=== PATIENT | female | born 1940 | race Caucasian/White ===

== ENCOUNTER 2019-03-17 20:10 | Emergency (ER) | payer OTHER ==
[~2019-03-17] VITALS: Ht 147.3 cm; Wt 78.5 kg
[~2019-03-17 20:10] MED LIST: ALBUTEROL SULFAT4 MG PO; AMLODIPINE BESY10 MG PO; ASPIRIN CHEW81 MG PO; CINNAMON500 MG PO; FIBER PO; FISH OIL 1,2001 EAC1 PO; FUROSEMIDE20 MG PO; LOSARTAN POTAS100 MG PO; MELOXICAM7.5 MG PO; OMEPRAZOLE40 MG PO; POTASSIUM GLUCO PO; SIMVASTATIN20 MG PO; SYMBICORT 16010.2 GM PO; Z.0.ATENOLOL25 MG PO; Z.0.BENZONATATE200 M PO; Z.0.CRESTOR5 MG PO; Z.0.LISINOPRIL20 MG PO; Z.0.MELOXICAM7.5 MG PO; Z.0.OMEPRAZOLE20 MG PO; Z.0.WARFARIN SODIUM2 PO; Z.0.WARFARIN SODIUM4 PO; [UNRECOGNIZED DRUG - MIXTURE] PO
--- OUTSIDE RECORDS SUMMARY | 2019-03-17 20:14 | XMS REPORT ---
Author Author [facility] Address Unknown Phone Unavailable Care Team Providers Care Pot Liner Name Role Phone Unavailable Unavailable Payers Payer Name Policy Type Policy Number Effective Date Expiration Date Problems This patient has no known problems. Allergies, Adverse Reactions, Alerts Allergy Name Allergy Type Status Severity Reaction(s) Onset Date Inactive Date Treating Clinician Comments albuterol DA Active SV 2018-11-21 00:00:00 levalbuterol DA Active SV 2018-11-21 00:00:00 codeine DA Active U 2018-09-20 00:00:00 codeine DA Active U 2018-06-14 00:00:00 codeine DA Active U 2012-09-21 00:00:00 Medications This patient has no known medications. Results Test Description Test Time Test Comments Text Results Atomic Results Result Comments - US ABDOMEN LTD 2019-01-16 08:11:00 Name: BRANDT GRIER [facility] : 1940 Age/S: 78 / F [address] Unit #: [id number] Loc: [place] [address] Phys: Pasquale Molina MD Acct: [id number] Dis Date: Status: REG REF PHONE #: [phone] Exam Date: 01/16/2019 0755 FAX #: Reason: FATTY LIVER EXAMS: CPT: [id number] US ABDOMEN LTD 72910 EXAMINATION: - US ABDOMEN LTD. LOCATION: S17. HISTORY: Fatty liver. COMPARISON: CT abdomen/pelvis 03/14/2014. US abdomen Limited 06/14/2018. TECHNIQUE: Multiple grayscale, pulse Doppler and color Doppler images of the right upper quadrant of the abdomen were obtained. FINDINGS: The visualized liver parenchyma demonstrates diffusely increased echogenicity, similar to prior. The main, right and left portal veins are patent. Hepatic veins, splenic vein and hepatic artery are patent. There is no intra or extrahepatic biliary ductal dilatation. The common duct measures 5 mm. The gallbladder is without calculi or wall thickening. The partially visualized pancreatic head and body appears unremarkable, evaluation of the tail is limited by overlying bowel gas. The right kidney measures 9.5 cm. There is no hydronephrosis. Large cyst arising from lower pole right kidney measuring 5.2 x 5.2 x 5.9 cm. Previously noted right upper pole cyst on CT is not appreciated sonographically. The visualized portions of abdominal aorta and IVC appear unremarkable. IMPRESSION: Unchanged diffusely increased echogenicity of liver parenchyma, nonspecific, most commonly described in the setting of hepatic steatosis versus underlying parenchymal process. PAGE 1 Signed Report (CONTINUED) [facility] 1940 Age/S: 78 / F [address] [address] Unit #: [id number] Loc: [place] [address] Phys: Pasquale Molina MD Acct: [id number] Dis Date: Status: REG REF PHONE #: [phone] Exam Date: 01/16/2019 0755 FAX #: Reason: FATTY LIVER EXAMS: CPT: [id number] US ABDOMEN LTD 55925 <Continued> at 0811 Reported and signed by: Ramy Multani M.D. CC: Wili Og MD; Pasquale Molina MD Technologist: Lenora Harvey, RT(R),RD(AB) Trnscb Date/Time: 01/16/2019 (08) [email or web address] PAGE 2 Signed Report [facility] 1940 Age/S: 78 / F [address] [address] Unit #: [id number] Loc: [place] [address] Phys: Pasquale Molina MD Acct: [id number] Dis Date: Status: REG REF PHONE #: [phone] Exam Date: 01/16/2019 0755 FAX #: Reason: FATTY LIVER EXAMS: CPT: [id number] ABDOMEN LTD 79557 <Continued> Orig Print D/T: S: 01/16/2019 (0815) Probe: PAGE 3 Signed Report BREAST,BIOPSY 2018-12-06 15:35:00 RUN DATE: 12/06/18 [place] - Lab PAGE 1 RUN TIME: 1535 Specimen Inquiry RUN USER: INTERFACE PATIENT: BRANDT GRIER LOC: V.SRG U #: [id number] AGE/SX: 78/F ROOM: RE11/28/18[facility] DR: Roland Webster MD : 44 BED: DIS: STATUS: [facility] TLOC: SPEC #: [id number] RECD: 11/28/18 STATUS: YAYA CORONADO #: [id number] OSIRIS: 11/28/18- SUBM DR: Roland Webster MD ENTERED: 11/28/18 SP TYPE: BX BREAST OTHR DR: Wili Og MD ORDERED: GROSS COPIES TO: Roland Webster MD [address] [place] [address] Wili Og MD [address] [place] [address] MARKERS: INTRADEPARTMENTAL CONSULT PROCEDURES: GROSS (12/06/18) TISSUES: BREAST CORE BIOPSY - LEFT MASS CLINICAL HISTORY COLLECTION DATE: 11/28/18 LEFT BREAST MASS COMMENT The lesion is entirely submitted for histologic evaluation and shows a well delineated area of usual ductal epithelial hyperplasia and columnar cell hyperplasia in which areas of intraductal papilloma formation are seen. Atypical features are not appreciated. Fibrosis occurs around this area and in the adjacent breast parenchyma. The lesion identified grossly measured 1.3 cm in greatest diameter. However, the area of hyperplasia and intraductal papilloma formation measures 0.8 cm in greatest diameter in a histologic section. Paraffin embedded tissue was submitted to [facility] for an immunoperoxidase stain for P63. The slide is reviewed at [facility]. The control stains appropriately. A myoepithelial layer is shown to be present throughout the well-delineated hyperplastic area, no invasion is seen. Hyalinized fibrosis extends to the surgical margin. However, the area of hyperplasia and papilloma formation does not extend to the inked margins. Clinical correlation is necessary. Intradepartmental consultation: DMW. CONTINUED ON NEXT PAGE ---------RUN DATE: 12/06/18 [place] [facility] PAGE 2 RUN TIME: 1535 Specimen Inquiry RUN USER: INTERFACE SPEC #: [id number] PATIENT: BRANDT GRIER #[id number] (Continued) FINAL DIAGNOSIS Left breast mass, excisional biopsy with needle localization: WELL DELINEATED AREA OF USUAL DUCTAL EPITHELIAL HYPERPLASIA AND COLUMNAR CELL HYPERPLASIA WITH INTRADUCTAL PAPILLOMA FORMATION, see comment ORGANIZING BIOPSY CHANGE IDENTIFIED ADJACENT TO LESION SURGICAL MARGIN OF RESECTION UNINVOLVED INCREASED HYALINIZED FIBROSIS AND AREAS OF USUAL DUCTAL EPITHELIAL HYPERPLASIA IN ADJACENT BREAST PARENCHYMA NEGATIVE FOR MALIGNANCY RRB/sm A 62835, 29716 MACROSCOPIC The specimen is received in formalin, labeled with the patient's name, and identified as "left breast mass". It consists of an unoriented portion of lobulated yellow-pink fatty tissue with a localizing wire in place. The tissue is partially fragmented but a firm area is palpable near the tip of the wire. The specimen measures 4.5 X 2.0 X 1.3 cm. Sectioning through the tissue shows a firm well-delineated chisholm-pink area measuring 1.3 X 1.1 X 1.0 cm adjacent to white-chisholm fibrous tissue. A metal clip is present within the rounded firm area. This area extends to the inked surgical margin. The remaining tissue consists of lobulated fatty tissue with no significant fibrous parenchyma. The lesion and surrounding fibrous tissue are entirely submitted for histologic evaluation (1A-1C). GROSS PERFORMED AT [facility] [address] [place] [address] (P)[phone] MICROSCOPIC All of the stains, including any controls performed, stain appropriately. MICROSCOPIC PERFORMED AT [facility] [address] [place] [address] ([phone] CONTINUED ON NEXT PAGE RUN DATE: 12/06/18 [facility] PAGE 3 RUN TIME: 153 Specimen Inquiry RUN USER: INTERFACE [place]ILL EC #: [id number] PATIENT: BRANDT GRIER #[id number] (Continued) PERFORMING SITE Diagnosis performed at: [facility], MD [address] [facility], [place] [address] Signed SIGNATURE ON FILE Luis Daniel Paiz MD 12/06/18 7727 END OF REPORT PROTHROMBIN TIME 2018-11-21 14:17:00 PROTHROMBIN TIME PATIENT (test code=PTP) 9.8 seconds 9.0-14.0 INTERNATIONAL NORMAL RATIO (test code=INR) 0.8 0.8-1.2 The therapeutic range for oral anticoagulant therapy formost indications is an international normalized ratio (INR)of between 2.0 and 3.0. The recommended therapeutic INRrange for various clinical situations is listed below: Clinical Situation INR range Pulmonary e mbolism treatment (2.0-3.0)Venous thrombosis treatmentVenous thrombosis prophylaxis (high risk surgery)Prevention of systemic embolism from: Acute myocardial infarction Valvular heart disease Atrial fibrillation Mechanical prosthetic heart valves (2.5-3.5) IS PATIENT ON ANTICOAGULANTS? NTHROMBOPLASTIN TIME [id number] 14:17:00* Test Item Value Reference Range Comments THROMBOPLASTIN TIME PARTIAL (test code=PTT) 28.8 seconds 25.0-36.5 IS PATIENT ON ANTICOAGULANTS? NHEPATIC FUNCTION [id number] 13:59:00* Test Item Value Reference Range Comments TOTAL PROTEIN (test code=PROT) 7.6 gram/dL 6.4-8.2 ALBUMIN (test code=ALB) 3.6 g/dL 3.4-5.0 GLOBULIN (test code=GLOB) 4.0 gram/dL 2.7-4.2 ALBUMIN/GLOBULIN RATIO (test code=A/G) 0.9 0.75-1.50 BILIRUBIN TOTAL (test code=BILT) 0.30 mg/dL 0.0-1.0 BILIRUBIN DIRECT (test code=BILD) 0.10 mg/dL 0.0-0.20 SGOT/AST (test code=AST) 20 IUnit/L 15-37 SGPT/ALT (test code=ALT) 27 IUnit/L 12-78 ALKALINE PHOSPHATASE TOTAL (test code=ALKP) 141 IUnit/L 45-117 Note change in reference range due to change in reagent. BASIC METABOLIC [id number] 12:44:00* Test Item Value Reference Range Comments SODIUM (test code=NA) 141 mmol/L 136-145 POTASSIUM (test code=K) 3.8 mmol/L 3.5-5.1 CHLORIDE (test code=CL) 108.0 mmol/L 98-107 CARBON DIOXIDE (test code=CO2) 26.0 mmol/L 21-32 ANION GAP (test code=GAP) 10.8 10-20 GLUCOSE (test code=GLU) 270 mg/dL 74-106 BLOOD UREA NITROGEN (test code=BUN) 21 mg/dL 7-18 GLOMERULAR FILTRATION RATE (test code=GFR) > 60 mL/min >=60 Estimated GFR by using Modified MDRD formula.Chronic kidney disease is defined as either kidney damageor GFR <60 mL/min/1.73 m2 for >3 months. CREATININE (test code=CREAT) 0.90 mg/dL 0.55-1.02 Note change in reference range due to change in reagent. BUN/CREATININE RATIO (test code=BUN/CREA) 23.3 10-20 CALCIUM (test code=CA) 8.8 mg/dL 8.5-10.1 BASIC METABOLIC [id number] 12:38:00* Test Item Value Reference Range Comments SODIUM (test code=NA) 141 mmol/L 136-145 POTASSIUM (test code=K) 3.8 mmol/L 3.5-5.1 CHLORIDE (test code=CL) 108.0 mmol/L 98-107 CARBON DIOXIDE (test code=CO2) mmol/L 21-32 ANION GAP (test code=GAP) 10-20 GLUCOSE (test code=GLU) mg/dL 74-106 BLOOD UREA NITROGEN (test code=BUN) mg/dL 7-18 GLOMERULAR FILTRATION RATE (test code=GFR) mL/min >=60 CREATININE (test code=CREAT) mg/dL 0.55-1.02 BUN/CREATININE RATIO (test code=BUN/CREA) 10-20 CALCIUM (test code=CA) mg/dL 8.5-10.1 CBC W/AUTO [id number] 11:42:00* Test Item Value Reference Range Comments WHITE BLOOD CELL (test code=WBC) K/mm3 4.5-12.5 RED BLOOD CELL (test code=RBC) mill/mm3 3.7-5.2 HEMOGLOBIN (test code=HGB) 12.8 gram/dL 11.5-15.5 HEMATOCRIT (test code=HCT) 39.8 % 36.0-46.0 MEAN CELL VOLUME (test code=MCV) fL 80-98 MEAN CELL HGB (test code=MCH) picogram 27.0-33.0 MEAN CELL HGB CONCETRATION (test code=MCHC) gram/dL 33.0-36.0 RED CELL DISTRIBUTION WIDTH (test code=RDW) % 11.6-16.2 RED CELL DISTRIBUTION WIDTH SD (test code=RDW-SD) fL 37.0-51.0 PLATELET COUNT (test code=PLT) K/mm3 150-450 MEAN PLATELET VOLUME (test code=MPV) fL 6.7-11.0 NEUTROPHIL % (test code=NT%) % 39.0-69.0 IMMATURE GRANULOCYTE % (test code=IG%) % 0.0-5.0 LYMPHOCYTE % (test code=LY%) % 25.0-55.0 MONOCYTE % (test code=MO%) % 0.0-10.0 EOSINOPHIL % (test code=EO%) % 0.0-5.0 BASOPHIL % (test code=BA%) % 0.0-1.0 NEUTROPHIL # (test code=NT#) K/mm3 1.8-7.7 LYMPHOCYTE # (test code=LY#) K/mm3 1.0-5.0 MONOCYTE # (test code=MO#) K/mm3 0-0.8 EOSINOPHIL # (test code=EO#) K/mm3 0.0-0.5 BASOPHIL # (test code=BA#) K/mm3 0.0-0.2 CBC W/AUTO [id number] 11:42:00* Test Item Value Reference Range Comments WHITE BLOOD CELL (test code=WBC) 6.6 K/mm3 4.5-12.5 RED BLOOD CELL (test code=RBC) 4.19 mill/mm3 3.7-5.2 HEMOGLOBIN (test code=HGB) 12.8 gram/dL 11.5-15.5 HEMATOCRIT (test code=HCT) 39.8 % 36.0-46.0 MEAN CELL VOLUME (test code=MCV) 95.0 fL 80-98 MEAN CELL HGB (test code=MCH) 30.5 picogram 27.0-33.0 MEAN CELL HGB CONCETRATION (test code=MCHC) 32.2 gram/dL 33.0-36.0 RED CELL DISTRIBUTION WIDTH (test code=RDW) 13.9 % 11.6-16.2 RED CELL DISTRIBUTION WIDTH SD (test code=RDW-SD) 48.1 fL 37.0-51.0 PLATELET COUNT (test code=PLT) 250 K/mm3 150-450 MEAN PLATELET VOLUME (test code=MPV) 11.1 fL 6.7-11.0 NEUTROPHIL % (test code=NT%) 62.9 % 39.0-69.0 IMMATURE GRANULOCYTE % (test code=IG%) 0.5 % 0.0-5.0 LYMPHOCYTE % (test code=LY%) 23.4 % 25.0-55.0 MONOCYTE % (test code=MO%) 9.0 % 0.0-10.0 EOSINOPHIL % (test code=EO%) 4.0 % 0.0-5.0 BASOPHIL % (test code=BA%) 0.2 % 0.0-1.0 NUCLEATED RBC % (test code=NRBC%) 0.0 % 0-0 NEUTROPHIL # (test code=NT#) 4.14 K/mm3 1.8-7.7 IMMATURE GRANULOCYTE # (test code=IG#) 0.03 x10 3/uL 0-0.03 LYMPHOCYTE # (test code=LY#) 1.54 K/mm3 1.0-5.0 MONOCYTE # (test code=MO#) 0.59 K/mm3 0-0.8 EOSINOPHIL # (test code=EO#) 0.26 K/mm3 0.0-0.5 BASOPHIL # (test code=BA#) 0.01 K/mm3 0.0-0.2 NUCLEATED RBC # (test code=NRBC#) 0.00 K/mm3 0.0-0.1 MANUAL DIFF REQUIRED (test code=MDIFF) NO - US ABDOMEN [id number] 15:20:00 Name: BRANDT GRIER [facility] : 1940 Age/S: 78 / F [address] [address] Unit #: [id number] Loc: [place] [address] Phys: Pasquale Molina MD Acct: [id number] Dis Date: Status: REG REF PHONE #: [phone] Exam Date: 06/14/2018 08 FAX #: Reason: FATTY LIVER INFILTRATION EXAMS: CPT: [id number] US ABDOMEN LTD 58633 EXAMINATION: - US ABDOMEN LTD. LOCATION: S17. HISTORY: CRUZ, [employer]. COMPARISON: CT abdomen/pelvis 03/14/2014. TECHNIQUE: Multiple grayscale, pulse Doppler and color Doppler images of the right upper quadrant of the abdomen were obtained. FINDINGS: The visualized liver parenchyma demonstrates diffusely increased echogenicity. The main, right and left portal veins are patent. Hepatic veins, splenic vein and hepatic artery are patent. There is no intra or extrahepatic biliary ductal dilatation. The common duct measures 6 mm. The gallbladder is without calculi or wall thickening. The visualized pancreatic head and body appears unremarkable, evaluation of the tail is limited by overlying bowel gas. The right kidney measures 9.2 cm. There is no hydronephrosis. Large cyst arising from lower pole right kidney measuring 5.6 x 5.3 x 5.6 cm. The visualized portions of abdominal aorta and IVC appear unremarkable. IMPRESSION: Diffusely increased echogenicity of liver parenchyma, nonspecific, most commonly described in the setting of hepatic steatosis versus underlying parenchymal process. at 1520 Reported and signed by: Ramy Multani M.D. PAGE 1 Signed Report (CONTINUED) Name: BRANDT GRIER [facility] : 1940 Age/S: 78 / F [address] [address] Unit #: [id number] Loc: [place] [address] Phys: Pasquale Molina MD Acct: [id number] Dis Date: Status: REG REF PHONE #: [phone] Exam Date: 06/14/2018 0847 FAX #: Reason: FATTY LIVER INFILTRATION EXAMS: CPT: [id number] US ABDOMEN LTD 12255 <Continued> CC: Wili Og MD; Pasquale Molina MD Technologist: Lenora Harvey, RT(R),RDMS(AB) Trnscb Date/Time: 06/14/2018 (1520) [email or web address] PAGE 2 Signed Report Name: BRANDT GRIER [facility] : 1940 Age/S: 78 / F [address] [address] Unit #: [id number] Loc: [place] [address] Phys: Pasquale Molina MD Acct: [id number] Dis Date: Status: REG REF PHONE #: [phone] Exam Date: 06/14/2018 0825 FAX #: Reason: FATTY LIVER INFILTRATION EXAMS: CPT: [id number] US ABDOMEN LTD 51597 <Continued> Orig Print D/T: S: 06/14/2018 (1523) Probe: PAGE 3 Signed Report - USG NDL PLACEMENT (Bxg/Asp)2018-06-14 13:10:00 Name: BRANDT GRIER [facility] : 1940 Age/S: 78 / F [address] [address] Unit #: [id number] Loc: [place] [address] Phys: Pasquale Molina MD Acct: [id number] Dis Date: Status: REG REF PHONE #: [phone] Exam Date: 06/14/2018 1030 FAX #: Reason: FATTY LIVER INFILTRATION EXAMS: CPT: [id number] USG NDL PLACEMENT (Bxg/Asp) [address] [employer]. EXAMINATION: IMAGE GUIDED PERCUTANEOUS LIVER BIOPSY with TRACT EMBOLIZATION. LOCATION: S17. HISTORY: CRUZ, hypertension, high cholesterol, request is made for liver biopsy. COMPARISON: None. SEDATION: Moderate sedation was administered under the attending physician's direction and continuous monitoring by a trained nurse specialist who was independent from those actually performing the procedure. Total monitored intraservice sedation time was 15 minutes. TECHNIQUE: The risks, benefits and alternatives were discussed and informed consent was obtained. Prior to beginning the procedure, Stafford Protocol was performed to confirm the patient's identity and the planned procedure. Maximum sterile barriers including cap, mask, hand hygiene, sterile gloves, sterile gown, large sterile drape and cutaneous antisepsis were used. The right lobe of the liver was localized using ultrasound guidance. A safe route, free of overlying structures was identified. The area over this site was anesthetized with 1% lidocaine and a small skin incision was made. A 15 gauge coaxial biopsy device was advanced into the liver substance using real-time ultrasound guidance. This device was used to obtain a series of two 16G core specimens. These tissue cores were transferred to the appropriate containers for surgical pathology in formalin. Persistent back bleeding was noted through the coaxial device after tissue sampling, thus biopsy tract was embolized using Gelfoam. At the end of the procedure, the biopsy set was removed and pressure held until hemostasis was achieved. ESTIMATED BLOOD LOSS: Minimal. CONDITION: Stable. DISCHARGE TO: Recovery then home. PAGE 1 Signed Report (CONTINUED) Name: BRANDT GRIER [facility] : 1940 Age/S: 78 / F [address] [address] Unit #: [id number] Loc: [place] [address] Phys: Pasquale Molina MD Acct: [id number] Dis Date: Status: REG REF PHONE #: [phone] Exam Date: 06/14/2018 1030 FAX #: Reason: FATTY LIVER INFILTRATION EXAMS: CPT: [id number] USG NDL PLACEMENT (Bxg/Asp) 41162 < Continued> FINDINGS: Initial limited ultrasound images of right hepatic lobe demonstrated unremarkable echogenicity of liver parenchyma. Final ultrasound images demonstrate no significant perihepatic hematoma. IMPRESSION: Successful image guided percutaneous liver biopsy. at 1310 Reported and signed by: Ramy Multani M.D. CC: Wili Og MD; Pasquale Molina MD Technologist: Kenisha Cabral Trnscb Date/Time: 06/14/2018 (3487) EscobarANS4 PAGE 2 Signed Report Name: BRANDT GRIER [facility] : 1940 Age/S: 78 / F [address] [address] Unit #: [id number] Loc: [place] [address] Phys: Pasquale Molina MD Acct: [id number] Dis Date: Status: REG REF PHONE #: [phone] Exam Date: 06/14/2018 1030 FAX #: Reason: FATTY LIVER INFILTRATION EXAMS: CPT: [id number] USG NDL PLACEMENT (Bxg/Asp) [address]186 <Continued> Orig Print D/T: S: 06/14/2018 (3352) Probe: PAGE 3 Signed Report
[2019-03-17 21:27] LABS: BILIRUBIN,URINE NEGATIVE (NEGATIVE); CLARITY,URINE CLEAR (CLEAR); COLOR,URINE YELLOW (YELLOW); KETONES,URINE NEGATIVE (NEGATIVE); LEUKOCYTE ESTERASE ,URINE NEGATIVE (NEGATIVE); NITRITE,URINE NEGATIVE (NEGATIVE); PROTEIN,URINE DIPSTICK NEGATIVE (NEGATIVE); URINE UROBILINOGEN 0.2 mg/dL (0.2 - 1)
[2019-03-17 21:38] LABS: BACTERIA,URINE RARE /HPF; EPITHELIAL CELLS,URINE FEW /LPF; RBC,URINE 0-5 /HPF (0-5); WBC,URINE (MAN) 0-5 /HPF (0-5)
[2019-03-17 21:47] LABS: BASOPHILS % 0.3 % (0.0-1.0); EOSINOPHILS # (AUTO) 0.2 (0.0-0.4); EOSINOPHILS % 2.1 % (0.0-6.0); HEMATOCRIT 40.7 % (34.2-44.1); HEMOGLOBIN 13.5 g/dL (12.0-16.0); LYMPHOCYTES % 19.5 % (18.0-39.1); MEAN CORPUSCULAR HEMOGLOBIN 30.1 pg (28-32); MEAN CORPUSCULAR HGB CONC 33.2 g/dL (31-35); MEAN CORPUSCULAR VOLUME 90.8 fL (81-99); MONOCYTES # (AUTO) 0.9 (0.2-0.8); MONOCYTES % 8.9 % (4.4-11.3); NEUTROPHILS % 68.6 % (38.7-80.0); PLATELET COUNT 289 x10e3/uL (140-360); RED BLOOD COUNT 4.48 x10e6/uL (3.6-5.1); RED CELL DISTRIBUTION WIDTH 13.5 % (11.7-14.4)
[2019-03-17 22:07] LABS: ALBUMIN 3.7 g/dL (3.5-5.0); ALBUMIN/GLOBULIN RATIO 0.9 (0.8-2.0); ANION GAP 19.1 mmol/L (8-16); CALCIUM 9.8 mg/dL (8.4-10.2); CREATININE, SERUM 1.08 mg/dL (0.57-1.11); POTASSIUM 4.1 mmol/L (3.5-5.1)
--- NOTE | 2019-03-17 22:08 | NUR ---
TRANSFER INITIATED TO [facility], SPOKE TO JAMIE MELENDEZ TC
--- NOTE | 2019-03-17 22:11 | Diagnostic Imaging Report ---
EXAMINATION: Head CT without contrast. HISTORY:Confusion. COMPARISON:None. TECHNIQUE: Multidetector axial images were obtained from the foramen magnum to the vertex without contrast. The images were reconstructed using brain and bone algorithms. Thin section brain images were reformatted into coronal and sagittal planes. Dose modulation, iterative reconstruction, and/or weight based adjustment of the mA/kV was utilized to reduce the radiation dose to as low as reasonably achievable. Intravenous contrast: None IMAGE QUALITY: Acceptable. FINDINGS: Skull/scalp: No lytic or blastic. lesions. No surgical changes. Parenchyma: Heterogeneously hyperdense acute hemorrhage with areas of fluid fluid level and interspersed with curvilinear hypodensity, centered in right middle frontal subcortical and deep white matter that approximately measures 2.4 x 2.9 x 3.2 cm (SAT) with significant surrounding vasogenic edema and regional mass effect. No midline shift or brain herniation. Nonspecific bilateral predominantly frontal confluent white matter hypodensity are likely related to small vessel ischemic changes. Focal hypodensity in left lentiform nucleus represents old lacunar infarct. Arteries: No density suggestive of thrombosis. Atherosclerotic calcification in bilateral carotid siphon and V4 segment of the vertebral arteries. Dural sinuses: No abnormal density suggestive of thrombosis. Ventricles: No hydrocephalus or displacement. Extra-axial spaces: No abnormal density. Brain volume: Normal for age. Craniocervical junction: No mass, Chiari malformation, or basilar invagination. Sella: No mass. Paranasal/mastoid sinuses: Imaged portions unremarkable. IMPRESSION: 1. Right middle frontal 3.2 cm acute hemorrhage with surrounding vasogenic edema and regional mass effect, differential consideration includes hemorrhagic mass or hemorrhage associated with underlying vascular malformation in appropriate clinical setting. 2. Moderate supratentorial white matter microvascular ischemic changes. 3. 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 Recommendation: 1. Neurosurgery consultation. 2. CTA of the head to assess Spot score and for the presence of underlying vascular malformation. 3. Short-term follow-up MRI of the brain with and without contrast for assessment of underlying mass. Critical findings were informed to ER physician Dr. Alexis by phone at 10:00 PM on 03/17/2019. Signed by: Dr. Ela Bruner M.D. on 03/17/2019 10:08 PM
--- NOTE | 2019-03-17 22:12 | Diagnostic Imaging Report ---
EXAMINATION: CHEST SINGLE (PORTABLE) INDICATION: ^ERMD ORDER ^Y COMPARISON: 10/19/2016 FINDINGS: AP view TUBES and LINES: None. LUNGS: Lungs are well inflated. There is no evidence of pneumonia or pulmonary edema. Minimal bibasilar subsegmental atelectasis. PLEURA: No pleural effusion or pneumothorax. HEART AND MEDIASTINUM: The cardiomediastinal silhouette is enlarged. BONES AND SOFT TISSUES: No acute osseous lesion. Soft tissues are unremarkable. UPPER ABDOMEN: No free air under the diaphragm. IMPRESSION: Enlarged cardiomediastinal silhouette. Otherwise, unremarkable. Signed by: Dr. Bobby Arreguin MD on 03/17/2019 10:09 PM
[2019-03-17 22:13] LABS: INR 0.91; PROTHROMBIN TIME 12.7 seconds (11.9-14.5)
[2019-03-17 22:14] LABS: PARTIAL THROMBOPLASTIN TIME 23.5 seconds (23.8-35.5)
[2019-03-17 22:16] LABS: CREATINE KINASE MB 1.5 ng/mL (0-5.0)
[2019-03-17 23:23] VITALS: BP 139/42
== END 2019-03-17 23:25 | disposition short-term general hospital (02) ==
LOC: ER 20:10
DX: I61.1 Nontraumatic intracerebral hemorrhage in hemisphere, cortical (principal); I10 Essential (primary) hypertension; K21.9 Gastro-esophageal reflux disease without esophagitis
CPT/HCPCS: 36415; 70450; 71045; 80053; 81001; 82550; 82553; 84484; 85025; 85610; 85730; 99284

== ENCOUNTER 2020-05-27 10:00 | Emergency (ER) | payer OTHER ==
[~2020-05-27] VITALS: Ht 147.3 cm; Wt 78.5 kg
[2020-05-27 13:26] VITALS: BP 163/76
== END 2020-05-27 13:34 | disposition home or self-care (01) ==
LOC: ER 10:18
DX: S42.214A Unspecified nondisplaced fracture of surgical neck of right humerus, initial encounter for closed fracture (principal); W01.0XXA Fall on same level from slipping, tripping and stumbling without subsequent striking against object, initial encounter; Y92.098 Other place in other non-institutional residence as the place of occurrence of the external cause; I10 Essential (primary) hypertension; K21.9 Gastro-esophageal reflux disease without esophagitis; Z86.73 Personal history of transient ischemic attack (TIA), and cerebral infarction without residual deficits; Z96.652 Presence of left artificial knee joint
CPT/HCPCS: 70450; 71045; 72125; 99283

== ENCOUNTER → 2024-01-25 | Day surgery (SDC) | payer MEDICARE, OTHER ==
[2024-01-23 10:14] LABS: BASOPHILS # (AUTO) 0.1 (0.0-0.1); BASOPHILS % 0.7 % (0.0-1.0); EOSINOPHILS # (AUTO) 3.8 (0.0-0.4); EOSINOPHILS % 35.9 % (0.0-6.0); HEMATOCRIT 35.9 % (34.2-44.1); HEMOGLOBIN 11.2 g/dL (12.0-16.0); LYMPHOCYTES # (AUTO) 1.2 (1.0-3.2); MEAN CORPUSCULAR HEMOGLOBIN 30.8 pg (28-32); MEAN CORPUSCULAR HGB CONC 31.2 g/dL (31-35); MEAN CORPUSCULAR VOLUME 98.6 fL (81-99); MONOCYTES # (AUTO) 0.8 (0.2-0.8); MONOCYTES % 7.2 % (4.4-11.3); NEUTROPHILS # (AUTO) 4.7 (2.1-6.9); NEUTROPHILS % 44.8 % (38.7-80.0); PLATELET COUNT 223 x10e3/uL (140-360); RED BLOOD COUNT 3.64 x10e6/uL (3.6-5.1); RED CELL DISTRIBUTION WIDTH 13.7 % (11.7-14.4); WHITE BLOOD COUNT 10.54 x10e3/uL (4.8-10.8)
[2024-01-23 10:17] LABS: INR 2.22; PROTHROMBIN TIME 25.7 seconds (11.9-14.5)
[2024-01-23 10:18] LABS: ALBUMIN 3.3 g/dL (3.5-5.0); ALBUMIN/GLOBULIN RATIO 0.8 (0.8-2.0); ANION GAP 14.8 mmol/L (8-16); BILIRUBIN,TOTAL 0.4 mg/dL (0.2-1.2); CALCIUM 9.1 mg/dL (8.4-10.2); CREATININE, SERUM 1.02 mg/dL (0.57-1.11); PARTIAL THROMBOPLASTIN TIME 33.7 seconds (23.8-35.5); POTASSIUM 3.8 mmol/L (3.5-5.1); TOTAL PROTEIN 7.7 g/dL (6.5-8.1)
[2024-01-23 18:11] LABS: EOSINOPHILS % (MANUAL) 37 % (0-7); HYPOCHROMASIA SLIGHT; LYMPHOCYTES % (MANUAL) 8 % (19-48); MONOCYTES % (MANUAL) 5 % (3.4-9.0); NEUTROPHILS % (MANUAL) 50 % (40-74); PLATELET ESTIMATE ADEQUATE; PLATELET MORPHOLOGY COMMENT NORMAL; RBC MORPHOLOGY COMMENT NORMAL
[~2024-01-25] MED LIST changes: +ALBUTEROL0.63 MG/3 NEB; +ALENDRONATE SOD70 MG PO; +AMIODARONE HCL200 MG PO; +ATORVASTATIN CA20 MG PO; +BENZONATATE200 MG PO; +BREZTRI AEROS10.7 GM INH; +CULTURELLE1 EACH PO; +D3-5000125 MCG PO; +DOCUSATE SODIU100 MG PO; +ETOMIDATE 2 MG/ML 10 ML INJ IV ONE; +IPRATROPIU0.2 MG/1 M NEB; +LEVOTHYROXINE50 MCG PO; +LIDOCAINE 2% /EPINEPHRINE 20 ML SDV INJ ONE; +LIDOCAINE HCL-PF 4% 40 MG/1 ML 5ML AMP ONE; +METOPROLOL SUCC50 MG PO; +MONTELUKAST SOD10 MG PO; +MUCINEX600 MG PO; +NITROGLYCERIN0.4 MG SL; +ONDANSETRON ODT8 MG PO; +SERTRALINE HCL50 MG PO; +WARFARIN SODIUM2 MG PO
[2024-01-25 11:36] LABS: INR 1.29; PROTHROMBIN TIME 16.7 seconds (11.9-14.5)
[2024-01-25 11:37] LABS: PARTIAL THROMBOPLASTIN TIME 28.1 seconds (23.8-35.5)
[2024-01-25] MEDS: CYCLOPENTOLATE HCL 2% OPTH SOLN 2 ML BTL OP ONE (11:50)
[2024-01-25] MEDS: TETRACAINE HCL 0.5% OPTH SOLN 4 ML BTL ONE (11:50)
[2024-01-25] MEDS: GATIFLOXACIN(OPTH) 5 ML LIQD ONE (11:51)
[2024-01-25] MEDS: LACTATED RINGER'S 1,000 ML ONE (11:51)
[2024-01-25] MEDS: PHENYLEPHRINE HCL 2 ML DROPS ONE (11:51)
[2024-01-25 14:10] VITALS: BP 130/61; PULSE 63; RESP 20; TEMP 98.3; O2SAT 94
== END | disposition home or self-care (01) ==
LOC: OR 09:52
PROVIDERS: ATTEND Ophthalmology
DX: H25.12 Age-related nuclear cataract, left eye (principal); E11.9 Type 2 diabetes mellitus without complications; I11.0 Hypertensive heart disease with heart failure; I50.9 Heart failure, unspecified; I25.10 Atherosclerotic heart disease of native coronary artery without angina pectoris; E78.5 Hyperlipidemia, unspecified; F32.A Depression, unspecified; E03.9 Hypothyroidism, unspecified; J44.9 Chronic obstructive pulmonary disease, unspecified; Z88.6 Allergy status to analgesic agent; Z88.8 Allergy status to other drugs, medicaments and biological substances; Z01.810 Encounter for preprocedural cardiovascular examination; Z01.812 Encounter for preprocedural laboratory examination; Z79.82 Long term (current) use of aspirin; Z79.01 Long term (current) use of anticoagulants; Z79.84 Long term (current) use of oral hypoglycemic drugs; Z79.899 Other long term (current) drug therapy; Z86.711 Personal history of pulmonary embolism; Z86.73 Personal history of transient ischemic attack (TIA), and cerebral infarction without residual deficits
CPT/HCPCS: 36415 ×2; 66984; 80053; 85025; 85610 ×2; 85730 ×2; 93005; J2001; J7121; V2632